=== PATIENT | female | born 1990 | race Caucasian/White ===

== ENCOUNTER 2016-11-03 17:48 | Emergency (ER) | payer OTHER ==
--- NOTE | 2016-11-03 19:51 | ED CLINICAL REPORT ---
Clinical Report - Physicians/Mid Levels [facility] [address] [place] [address] 11/03/2016 17:50 Patient: SRINIVASAN RAMIREZ Time Seen: 19:01; initial patient contact. Arrived- By private vehicle. Historian- patient. HISTORY OF PRESENT ILLNESS Chief Complaint: ALLERGIC REACTION. THROAT SWELLING and DYSPNEA. pt states she took her amoxicillin and flonase last night, and this morning feels like her throat is a little tight, has a history of asthma, and feels wheezy, not improving with her inhaler, no rash no tongue or facial swelling... This started today and is still present. The patient has had mild difficulty breathing . The patient has also had wheezing and mild trouble swallowing. A possible cause has been identified (amox or flonase). She has recently taken an antibiotic. No treatment prior to arrival. Similar symptoms previously: Recent medical care: The patient was seen recently at another facility in a clinic. REVIEW OF SYSTEMS The patient has had a cough. No headache, weakness, numbness, chest pain or palpitations. All systems otherwise negative, except as recorded above. PAST HISTORY See nurses notes. Prior allergic reaction. Hay fever. Problems: URI. Bronchitis. Pneumonia. LNMP - Last Normal Menstrual Period. Additional Surgeries: no known surgeries. Medications: Fluticasone Propionate Nasal. Amoxicillin Oral 1000 mg q12hrs. MonoNessa Oral. Levothyroxine Sodium Oral 175 mcg, daily. Albuterol Sulfate Inhalation. Allergies: No Known Drug Allergy. SOCIAL HISTORY Never smoker. No alcohol use or drug use. FAMILY HISTORY Negative. ADDITIONAL NOTES The nursing notes have been reviewed with agreement regarding the chief complaint, HPI, ROS, PMH and patient medications and allergies. PHYSICAL EXAM Vital Signs: 11/03/2016 19:17 BP: 117/80. HR: 98. RR: 18. O2 saturation: 100%. Pain level now: 0/10. 11/03/2016 18:05 BP: 132/92. HR: 96. RR: 18. O2 saturation: 99%. Temp: 98.8 F. Pain level now: 3/10. Have been reviewed. Appearance: Alert. Oriented X3. No acute distress. Anxious. Head and Neck: Normal external inspection. Eyes: Pupils equal, round and reactive to light. No conjunctival findings. ENT: Abnormal ear exam. Right Ear: there is TM dullness, a diffuse light reflex, bulging of the TM and mild TM erythema. Left Ear: there is TM dullness present, bulging of the TM and mild TM erythema. Hoarse voice. Nose normal. Pharynx normal. Neck: Neck supple. No lymphadenopathy or meningeal signs. CVS: Normal heart rate and rhythm. Heart sounds normal. Respiratory: No respiratory distress. Mildly decreased air movement bilaterally. Inspiratory wheezes in the right and left upper lung. No accessory muscle use, rales or rhonchi. Abdomen: Nontender. Skin: Skin warm and dry. Normal skin turgor. Skin: Normal skin color. No rash. No urticaria. Neuro: Oriented X 3. PROGRESS AND PROCEDURES Course of Care: 18:13 11/03/16. Patient identifiers checked. Call light placed in reach. Bed placed in lowest position. Patient ready for evaluation- chart flagged. --18:13 Juany Mendiola R.N. 18:20 11/03/2016 Site #1 started via IV in the right wrist with an 20g angiocath, with aseptic technique and good blood return; one attempt. Blood drawn: rainbow set. Labeled in the presence of the patient and sent to the lab. Saline lock flushed with 10 mL saline. --18:20 Juany Mendiola R.N. Care transferred and report received (SERGEY Harrington). --19:06 Caity Coronado R.N. 19:17 11/03/2016 Benadryl (DiphenhydrAMINE HCl) IVP 25 mg given over 1 minute(s) via site #1. Allergies verified, confirmed 5 rights and sedative warning given to the patient. IV patency established. IV site checked: no pain, redness, or swelling. IV flushed thoroughly pre- and post-medication administration. IVP given by RN. --19:17 Caity Coronado R.N. 19:21 11/03/16. Overall patient status is improved- she states feels better. ( Patient says she is feeling like she is breathing a little better. RT says she is tight in lungs so he will do Duoneb treatment). RESPIRATORY: No respiratory distress. SKIN: Skin is warm. Skin color within normal limits. --19:21 Caity Coronado R.N. 19:17 11/03/16. BP: 117/80. HR: 98. RR: 18. O2 saturation: 100% on room air. Pain level now: 0/10. --19:21 Caity Coronado R.N. 19:41 11/03/16. ( Patient says she is breathing much better now after treatment). --19:41 Caity Coronado R.N. Patient is stable. The patient's symptoms are now gone. Physical exam findings are improved. CLINICAL IMPRESSION Localized allergic reaction with bronchospasm secondary to PO penicillins. Acute bronchospasm Acute maxillary sinusitis. INSTRUCTIONS No strenuous activity. Rest. Do not work for three days until better. Do not smoke. No alcohol. (stop the amoxicillin, change to zithromax. follow up with your doctor. you might see a operations analyst or calibration tester if your asthma fails to improve). Warnings: Further evaluation is necessary. GENERAL WARNINGS: Return or contact your physician immediately if your condition worsens or changes unexpectedly, if not improving as expected, or if other problems arise. Your Current Medications: CONTINUE TAKING THE FOLLOWING MEDICATIONS: Albuterol Sulfate Inhalation. Amoxicillin Oral : 1000 mg q12hrs. Fluticasone Propionate Nasal. Levothyroxine Sodium Oral : 175 mcg daily. MonoNessa Oral. Prescription Medications: Zithromax Z-Alton 250 mg tablets: Take according to package instructions 2 orally today, followed by 1 orally every day for the next 4 days. Total course 5 days. No refills. Substitution is permissible. Zyrtec 10 mg: take 1 tablet orally every day as needed for allergies or congestion. Dispense thirty (30). No refill. Substitution is permissible. Follow-up: Follow up with a operations analyst if not better. Understanding of the discharge instructions verbalized by patient. (Electronically signed by Fernanda Johnson PA-C 11/04/2016 0:36)
--- NOTE | 2016-11-03 19:51 | ED CLINICAL REPORT ---
Clinical Report - Physicians/Mid Levels [facility] [address] [place] [address] 11/03/2016 17:50 Patient: SRINIVASAN RAMIREZ Time Seen: 19:01; initial patient contact. Arrived- By private vehicle. Historian- patient. HISTORY OF PRESENT ILLNESS Chief Complaint: ALLERGIC REACTION. THROAT SWELLING and DYSPNEA. pt states she took her amoxicillin and flonase last night, and this morning feels like her throat is a little tight, has a history of asthma, and feels wheezy, not improving with her inhaler, no rash no tongue or facial swelling... This started today and is still present. The patient has had mild difficulty breathing . The patient has also had wheezing and mild trouble swallowing. A possible cause has been identified (amox or flonase). She has recently taken an antibiotic. No treatment prior to arrival. Similar symptoms previously: Recent medical care: The patient was seen recently at another facility in a clinic. REVIEW OF SYSTEMS The patient has had a cough. No headache, weakness, numbness, chest pain or palpitations. All systems otherwise negative, except as recorded above. PAST HISTORY See nurses notes. Prior allergic reaction. Hay fever. Problems: URI. Bronchitis. Pneumonia. LNMP - Last Normal Menstrual Period. Additional Surgeries: no known surgeries. Medications: Fluticasone Propionate Nasal. Amoxicillin Oral 1000 mg q12hrs. MonoNessa Oral. Levothyroxine Sodium Oral 175 mcg, daily. Albuterol Sulfate Inhalation. Allergies: No Known Drug Allergy. SOCIAL HISTORY Never smoker. No alcohol use or drug use. FAMILY HISTORY Negative. ADDITIONAL NOTES The nursing notes have been reviewed with agreement regarding the chief complaint, HPI, ROS, PMH and patient medications and allergies. PHYSICAL EXAM Vital Signs: 11/03/2016 19:17 BP: 117/80. HR: 98. RR: 18. O2 saturation: 100%. Pain level now: 0/10. 11/03/2016 18:05 BP: 132/92. HR: 96. RR: 18. O2 saturation: 99%. Temp: 98.8 F. Pain level now: 3/10. Have been reviewed. Appearance: Alert. Oriented X3. No acute distress. Anxious. Head and Neck: Normal external inspection. Eyes: Pupils equal, round and reactive to light. No conjunctival findings. ENT: Abnormal ear exam. Right Ear: there is TM dullness, a diffuse light reflex, bulging of the TM and mild TM erythema. Left Ear: there is TM dullness present, bulging of the TM and mild TM erythema. Hoarse voice. Nose normal. Pharynx normal. Neck: Neck supple. No lymphadenopathy or meningeal signs. CVS: Normal heart rate and rhythm. Heart sounds normal. Respiratory: No respiratory distress. Mildly decreased air movement bilaterally. Inspiratory wheezes in the right and left upper lung. No accessory muscle use, rales or rhonchi. Abdomen: Nontender. Skin: Skin warm and dry. Normal skin turgor. Skin: Normal skin color. No rash. No urticaria. Neuro: Oriented X 3. PROGRESS AND PROCEDURES Course of Care: 18:13 11/03/16. Patient identifiers checked. Call light placed in reach. Bed placed in lowest position. Patient ready for evaluation- chart flagged. --18:13 Juany Mendiola R.N. 18:20 11/03/2016 Site #1 started via IV in the right wrist with an 20g angiocath, with aseptic technique and good blood return; one attempt. Blood drawn: rainbow set. Labeled in the presence of the patient and sent to the lab. Saline lock flushed with 10 mL saline. --18:20 Juany Mendiola R.N. Care transferred and report received (SERGEY Harrington). --19:06 Caity Coronado R.N. 19:17 11/03/2016 Benadryl (DiphenhydrAMINE HCl) IVP 25 mg given over 1 minute(s) via site #1. Allergies verified, confirmed 5 rights and sedative warning given to the patient. IV patency established. IV site checked: no pain, redness, or swelling. IV flushed thoroughly pre- and post-medication administration. IVP given by RN. --19:17 Caity Coronado R.N. 19:21 11/03/16. Overall patient status is improved- she states feels better. ( Patient says she is feeling like she is breathing a little better. RT says she is tight in lungs so he will do Duoneb treatment). RESPIRATORY: No respiratory distress. SKIN: Skin is warm. Skin color within normal limits. --19:21 Caity Coronado R.N. 19:17 11/03/16. BP: 117/80. HR: 98. RR: 18. O2 saturation: 100% on room air. Pain level now: 0/10. --19:21 Caity Coronado R.N. 19:41 11/03/16. ( Patient says she is breathing much better now after treatment). --19:41 Caity Coronado R.N. Patient is stable. The patient's symptoms are now gone. Physical exam findings are improved. CLINICAL IMPRESSION Localized allergic reaction with bronchospasm secondary to PO penicillins. Acute bronchospasm Acute maxillary sinusitis. INSTRUCTIONS No strenuous activity. Rest. Do not work for three days until better. Do not smoke. No alcohol. (stop the amoxicillin, change to zithromax. follow up with your doctor. you might see a methods examiner or braid pattern setter if your asthma fails to improve). Warnings: Further evaluation is necessary. GENERAL WARNINGS: Return or contact your physician immediately if your condition worsens or changes unexpectedly, if not improving as expected, or if other problems arise. Your Current Medications: CONTINUE TAKING THE FOLLOWING MEDICATIONS: Albuterol Sulfate Inhalation. Amoxicillin Oral : 1000 mg q12hrs. Fluticasone Propionate Nasal. Levothyroxine Sodium Oral : 175 mcg daily. MonoNessa Oral. Prescription Medications: Zithromax Z-Alton 250 mg tablets: Take according to package instructions 2 orally today, followed by 1 orally every day for the next 4 days. Total course 5 days. No refills. Substitution is permissible. Zyrtec 10 mg: take 1 tablet orally every day as needed for allergies or congestion. Dispense thirty (30). No refill. Substitution is permissible. Follow-up: Follow up with a methods examiner if not better. Understanding of the discharge instructions verbalized by patient. (Electronically signed by Fernanda Johnson PA-C 11/04/2016 0:36)
--- NOTE | 2016-11-03 19:52 | ED NURSING NOTES ---
Clinical Report - Nurses [facility] [address] [place] [address] 11/03/2016 17:50 Patient: SRINIVASAN RAMIREZ TRIAGE Triage time 18:06. Acuity: LEVEL 3. Chief Complaint: POSSIBLE ALLERGIC REACTION and DIFFICULTY BREATHING and FEELING FAINT . woke up and "couldn't breathe". Alert. --18:13 Juany Mendiola R.N. 18:05 11/03/16. BP: 132/92. HR: 96. RR: 18. O2 saturation: 99%. Temp: 98.8 F. Pain level now: 08/17. --18:13 Juany Mendiola R.N. Weight: 140.6 kg stated. Height/Length: 67 inches Per Patient. BMI: 48.6. --18:11 Juany Mendiola R.N. Medications Albuterol Sulfate Inhalation. --18:07 Juany Mendiola R.N. Levothyroxine Sodium Oral 175 mcg, daily. --18:07 Juany Mendiola R.N. MonoNessa Oral. --18:08 Juany Mendiola R.N. Amoxicillin Oral 1000 mg q12hrs. --18:08 Juany Mendiola R.N. Fluticasone Propionate Nasal. --18:09 Juany Mendiola R.N. Allergies No Known Drug Allergy. --18:09 Juany Mendiola R.N. History Arrived by private vehicle. Historian: patient. Accompanied by (yayo). Primary physician (none). ( Pt thinks she is reacting to the fluticasone and possibly amoxicillin). This started today. Onset. (5 AM). Treatment GUEST SERVICES REPRESENTATIVE: (Albuterol). PAST MEDICAL HX: Immunizations: up-to-date. SOCIAL HX: Never smoker. No alcohol use or drug use. --18:13 Juany Mendiola R.N. PROBLEMS: Sinusitis. Bronchitis. Pneumonia. --18:10 Juany Mendiola R.N. ADDITIONAL SURGERIES: no known surgeries. Interventions ID band on patient. To room. --18:13 Juany Mendiola R.N. PHYSICAL ASSESSMENT 18:11/03/16. GENERAL / NEURO / PSYCH: Appears anxious. --18:13 Juany Mendiola R.N. NURSING PROGRESS NOTES 18:11/03/16. Patient identifiers checked. Call light placed in reach. Bed placed in lowest position. Patient ready for evaluation- chart flagged. --18:13 Juany Mendiola R.N. 18:20 11/03/2016 Site #1 started via IV in the right wrist with an 20g angiocath, with aseptic technique and good blood return; one attempt. Blood drawn: rainbow set. Labeled in the presence of the patient and sent to the lab. Saline lock flushed with 10 mL saline. --18:20 Juany Mendiola R.N. Care transferred and report received (Juany, RN). --19:06 Caity Coronado R.N. 19:17 11/03/2016 Benadryl (DiphenhydrAMINE HCl) IVP 25 mg given over 1 minute(s) via site #1. Allergies verified, confirmed 5 rights and sedative warning given to the patient. IV patency established. IV site checked: no pain, redness, or swelling. IV flushed thoroughly pre- and post-medication administration. IVP given by RN. --19:17 Caity Coronado R.N. 19:21 11/03/16. Overall patient status is improved- she states feels better. ( Patient says she is feeling like she is breathing a little better. RT says she is tight in lungs so he will do Duoneb treatment). RESPIRATORY: No respiratory distress. SKIN: Skin is warm. Skin color within normal limits. --19:21 Caity Coronado R.N. 19:17 11/03/16. BP: 117/80. HR: 98. RR: 18. O2 saturation: 100% on room air. Pain level now: 0/10. --19:21 Caity Coronado R.N. 19:41 11/03/16. ( Patient says she is breathing much better now after treatment). --19:41 Caity Coronado R.N. DISPOSITION / DISCHARGE Condition at departure: stable. No learning barriers present. Discharge instructions provided and reviewed with the patient. Reviewed medication(s) side effects, precautions, dosing and course information. Prescription(s) given to the patient. Patient verbalized understanding. Written instructions provided in Mongolian. The patient was discharged by the physician. She was discharged home and accompanied by learning coordinator. She left the Emergency Department ambulatory and via private vehicle. Operator Weapon Locating Radar driving. --20:04 Sheriff Freire R.N. Locked/Released at 11/03/2016 20:05 by Sheriff Freire R.N.
--- NOTE | 2016-11-03 19:52 | ED ORDER SUMMARY ---
..... Patient: SRINIVASAN RAMIREZ OrderSheet [facility] VisitID: [id number] [address] [place] [address] 26y, F Registration Date/Time: 11/03/2016 ORDER SHEET Weight: 140.6 kg (stated) Allergies: No Known Drug Allergy GENERAL ORDERS: RT Evaluation Stat (19:08 11/03/2016 Vinod SCHAEFFER) (Ack 19:10 IJurca ER Tech1) (19:22 JSanders R.N.) MEDICATION ORDERS: IV FLUIDS: IV Saline Lock (18:20 11/03/2016 LSullivan R.N. per protocol) (18:20 LSullivan R.N.) Benadryl IV 25 mg (NOW) (19:08 11/03/2016 Vinod SCHAEFFER) (Ack 19:12 JSanders R.N.) (19:17 JSanders R.N.) ORDER SHEET NOTES: [Electronically signed by Sheriff Rai Freire (20:05 11/03/2016)] [Electronically signed by Fernanda Johnson PA-C (00:36 11/04/2016)] [Electronically locked/signed by Sheriff Rai Freire (20:05 11/03/2016)]
--- NOTE | 2016-11-03 19:52 | ED ORDER SUMMARY ---
..... Patient: SRINIVASAN RAMIREZ OrderSheet [facility] VisitID: [id number] [address] [place] [address] 26y, F Registration Date/Time: 11/03/2016 ORDER SHEET Weight: 140.6 kg (stated) Allergies: No Known Drug Allergy GENERAL ORDERS: RT Evaluation Stat (19:08 11/03/2016 Vinod SCHAEFFER) (Ack 19:10 IJurca ER Tech1) (19:22 JSanders R.N.) MEDICATION ORDERS: IV FLUIDS: IV Saline Lock (18:20 11/03/2016 LSullivan R.N. per protocol) (18:20 LSullivan R.N.) Benadryl IV 25 mg (NOW) (19:08 11/03/2016 Vinod SCHAEFFER) (Ack 19:12 JSanders R.N.) (19:17 JSanders R.N.) ORDER SHEET NOTES: [Electronically signed by Sheriff Rai Freire (20:05 11/03/2016)] [Electronically signed by Fernanda Johnson PA-C (00:36 11/04/2016)] [Electronically locked/signed by Sheriff Rai Freire (20:05 11/03/2016)]
--- NOTE | 2016-11-03 19:52 | ED NURSING NOTES ---
Clinical Report - Nurses [facility] [address] [place] [address] 11/03/2016 17:50 Patient: SRINIVASAN RAMIREZ TRIAGE Triage time 18:06. Acuity: LEVEL 3. Chief Complaint: POSSIBLE ALLERGIC REACTION and DIFFICULTY BREATHING and FEELING FAINT . woke up and "couldn't breathe". Alert. --18:13 Juany Mendiola R.N. 18:05 11/03/16. BP: 132/92. HR: 96. RR: 18. O2 saturation: 99%. Temp: 98.8 F. Pain level now: 08/17. --18:13 Juany Mendiola R.N. Weight: 140.6 kg stated. Height/Length: 67 inches Per Patient. BMI: 48.6. --18:11 Juany Mendiola R.N. Medications Albuterol Sulfate Inhalation. --18:07 Juany Mendiola R.N. Levothyroxine Sodium Oral 175 mcg, daily. --18:07 Juany Mendiola R.N. MonoNessa Oral. --18:08 Juany Mendiola R.N. Amoxicillin Oral 1000 mg q12hrs. --18:08 Juany Mendiola R.N. Fluticasone Propionate Nasal. --18:09 Juany Mendiola R.N. Allergies No Known Drug Allergy. --18:09 Juany Mendiola R.N. History Arrived by private vehicle. Historian: patient. Accompanied by (yayo). Primary physician (none). ( Pt thinks she is reacting to the fluticasone and possibly amoxicillin). This started today. Onset. (5 AM). Treatment SALES PERFORMANCE MANAGER: (Albuterol). PAST MEDICAL HX: Immunizations: up-to-date. SOCIAL HX: Never smoker. No alcohol use or drug use. --18:13 Juany Mendiola R.N. PROBLEMS: Sinusitis. Bronchitis. Pneumonia. --18:10 Juany Mendiola R.N. ADDITIONAL SURGERIES: no known surgeries. Interventions ID band on patient. To room. --18:13 Juany Mendiola R.N. PHYSICAL ASSESSMENT 18:11/03/16. GENERAL / NEURO / PSYCH: Appears anxious. --18:13 Juany Mendiloa R.N. NURSING PROGRESS NOTES 18:11/03/16. Patient identifiers checked. Call light placed in reach. Bed placed in lowest position. Patient ready for evaluation- chart flagged. --18:13 Juany Mendiola R.N. 18:20 11/03/2016 Site #1 started via IV in the right wrist with an 20g angiocath, with aseptic technique and good blood return; one attempt. Blood drawn: rainbow set. Labeled in the presence of the patient and sent to the lab. Saline lock flushed with 10 mL saline. --18:20 Juany Mendiola R.N. Care transferred and report received (Juany, RN). --19:06 Caity Coronado R.N. 19:17 11/03/2016 Benadryl (DiphenhydrAMINE HCl) IVP 25 mg given over 1 minute(s) via site #1. Allergies verified, confirmed 5 rights and sedative warning given to the patient. IV patency established. IV site checked: no pain, redness, or swelling. IV flushed thoroughly pre- and post-medication administration. IVP given by RN. --19:17 Caity Coronado R.N. 19:21 11/03/16. Overall patient status is improved- she states feels better. ( Patient says she is feeling like she is breathing a little better. RT says she is tight in lungs so he will do Duoneb treatment). RESPIRATORY: No respiratory distress. SKIN: Skin is warm. Skin color within normal limits. --19:21 Caity Coronado R.N. 19:17 11/03/16. BP: 117/80. HR: 98. RR: 18. O2 saturation: 100% on room air. Pain level now: 0/10. --19:21 Caity Coronado R.N. 19:41 11/03/16. ( Patient says she is breathing much better now after treatment). --19:41 Caity Coronado R.N. DISPOSITION / DISCHARGE Condition at departure: stable. No learning barriers present. Discharge instructions provided and reviewed with the patient. Reviewed medication(s) side effects, precautions, dosing and course information. Prescription(s) given to the patient. Patient verbalized understanding. Written instructions provided in Tajik. The patient was discharged by the physician. She was discharged home and accompanied by sample cutter. She left the Emergency Department ambulatory and via private vehicle. Car Supplier driving. --20:04 Sheriff Freire R.N. Locked/Released at 11/03/2016 20:05 by Sheriff Freire R.N.
--- NOTE | 2016-11-04 00:36 | ED MAR SUMMARY ---
..... Medication Administration Record [facility] [address] [place] [address] Patient: SRINIVASAN RAMIREZ Visit ID: [id number] 26y, F Weight: 140.6 kg Height/Length: 67 in BMI: 48.6 ALLERGIES: No Known Drug Allergy Given 19:17 11/03/2016 Caity Coronado R.N. Medication Administered: BENADRYL [IVP] (DIPHENHYDRAMINE HCL), Dose: 25 mg IVP over 1 minute(s), Site: #1 right wrist. Medication Ordered: Benadryl IV 25 mg (NOW).
--- NOTE | 2016-11-04 00:36 | ED MED RECONCILIATION SUMMARY ---
Patient: SRINIVASAN RAMIREZ Medication Reconciliation Report [facility] VisitID: [id number] [address] [place] [address] 26y, F Registration Date/Time: 11/03/2016 Weight: 140.6 kg Height/Length: 67 in. BMI: 48.6 ALLERGIES: No Known Drug Allergy The patient's Home Medications are listed below: CONTINUE TAKING THE FOLLOWING MEDICATIONS: Albuterol Sulfate Inhalation Amoxicillin Oral 1000 mg q12hrs Fluticasone Propionate Nasal Levothyroxine Sodium Oral 175 mcg, daily MonoNessa Oral The source(s) of the original Home Medication information: Not obtained. The following Medications were given to the patient in the Emergency Department: Benadryl [IVP] IVP 25 mg, administered: 11/03/2016 7:17:00 PM The following Medications were prescribed to the patient: Zithromax Z-Alton 250 mg tablets: Take according to package instructions 2 orally today, followed by 1 orally every day for the next 4 days. Total course 5 days. No refills. Substitution is permissible. -- Fernanda Johnson PA-C Zyrtec 10 mg: take 1 tablet orally every day as needed for allergies or congestion. Dispense thirty (30). No refill. Substitution is permissible. -- Fernanda Johnson PA-C
--- NOTE | 2016-11-04 00:36 | ED MED RECONCILIATION SUMMARY ---
Patient: SRINIVASAN RAMIREZ Medication Reconciliation Report [facility] VisitID: [id number] [address] [place] [address] 26y, F Registration Date/Time: 11/03/2016 Weight: 140.6 kg Height/Length: 67 in. BMI: 48.6 ALLERGIES: No Known Drug Allergy The patient's Home Medications are listed below: CONTINUE TAKING THE FOLLOWING MEDICATIONS: Albuterol Sulfate Inhalation Amoxicillin Oral 1000 mg q12hrs Fluticasone Propionate Nasal Levothyroxine Sodium Oral 175 mcg, daily MonoNessa Oral The source(s) of the original Home Medication information: Not obtained. The following Medications were given to the patient in the Emergency Department: Benadryl [IVP] IVP 25 mg, administered: 11/03/2016 7:17:00 PM The following Medications were prescribed to the patient: Zithromax Z-Alton 250 mg tablets: Take according to package instructions 2 orally today, followed by 1 orally every day for the next 4 days. Total course 5 days. No refills. Substitution is permissible. -- Fernanda Johnson PA-C Zyrtec 10 mg: take 1 tablet orally every day as needed for allergies or congestion. Dispense thirty (30). No refill. Substitution is permissible. -- Fernanda Johnson PA-C
--- NOTE | 2016-11-04 00:36 | ED MAR SUMMARY ---
..... Medication Administration Record [facility] [address] [place] [address] Patient: SRINIVASAN RAMIREZ Visit ID: [id number] 26y, F Weight: 140.6 kg Height/Length: 67 in BMI: 48.6 ALLERGIES: No Known Drug Allergy Given 19:17 11/03/2016 Caity Coronado R.N. Medication Administered: BENADRYL [IVP] (DIPHENHYDRAMINE HCL), Dose: 25 mg IVP over 1 minute(s), Site: #1 right wrist. Medication Ordered: Benadryl IV 25 mg (NOW).
--- NOTE | 2016-11-04 00:36 | ED DISCHARGE INSTRUCTIONS ---
Patient: SRINIVASAN RAMIREZ General Instructions [facility] VisitID: [id number] [place] [address] 26y, F Registration Date/Time: 11/03/2016 Localized allergic reaction with bronchospasm secondary to PO penicillins. Acute bronchospasm Acute maxillary sinusitis. INSTRUCTIONS No strenuous activity. Rest. Do not work for three days until better. Do not smoke. No alcohol. (stop the amoxicillin, change to zithromax. follow up with your doctor. you might see a joiner or drop board worker if your asthma fails to improve). Warnings: Further evaluation is necessary. GENERAL WARNINGS: Return or contact your physician immediately if your condition worsens or changes unexpectedly, if not improving as expected, or if other problems arise. Your Current Medications: CONTINUE TAKING THE FOLLOWING MEDICATIONS: Albuterol Sulfate Inhalation. Amoxicillin Oral : 1000 mg q12hrs. Fluticasone Propionate Nasal. Levothyroxine Sodium Oral : 175 mcg daily. MonoNessa Oral. Prescription Medications: Zithromax Z-Alton 250 mg tablets: Take according to package instructions 2 orally today, followed by 1 orally every day for the next 4 days. Total course 5 days. No refills. Substitution is permissible. Zyrtec 10 mg: take 1 tablet orally every day as needed for allergies or congestion. Dispense thirty (30). No refill. Substitution is permissible. Follow-up: Follow up with a joiner if not better. Understanding of the discharge instructions verbalized by patient. ADDITIONAL INFORMATION Allergic Reaction, Other [Local] You are having an allergic reaction. This is due to exposure to something you have become sensitive to. This may be a household product, medicine, chemical, soap, cream, cosmetics or jewelry. A sting from an insect (that you were not aware of) can also cause this reaction. Sometimes it is difficult to know exactly what caused this reaction. There may be redness, itching, and swelling. The rash will fade over the next few days. Home Care: If itching is a problem, avoid anything that heats up your skin (hot showers/baths, direct sunlight) since heat will make itching worse. An ice pack (ice cubes in a plastic bag, wrapped in a towel) will reduce local areas of redness and itching. Lanacaine cream or Solarcaine spray (or other product containing "benzocaine") will reduce the itching. Oral Benadryl (diphenhydramine) is an antihistamine available at drug and grocery stores. Unless a prescription antihistamine was given, Benadryl may be used to reduce itching if large areas of the skin are involved. Use lower doses during the daytime and higher doses at bedtime since the drug may make you sleepy. [NOTE: Do not use Benadryl if you have glaucoma or if you are a man with trouble urinating due to an enlarged prostate.] Claritin (loratadine) is an antihistamine that causes less drowsiness and is a good alternative for daytime use. Follow Up with your doctor or this facility in the next two days if your symptoms do not continue to improve. Get Prompt Medical Attention if any of the following occur: Spreading areas of itching, redness or swelling New or worse swelling in the face, eyelids, lips, mouth, throat or tongue Trouble swallowing or breathing Dizziness, weakness or fainting Signs of infection: Spreading redness Increased pain or swelling Fever of 100.4F (38C) or higher, or as directed by your healthcare provider Colored fluid draining from the wound Bronchospasm (Adult) Bronchospasm occurs when the airways (bronchial tubes) go into spasm and contract. This makes it hard to breathe and causes wheezing (a high-pitched whistling sound). Bronchospasm can also cause frequent coughing without the wheezing sound. Bronchospasm is due to irritation, inflammation or allergic reaction of the airways. People with asthma get bronchospasm. However, not everyone with bronchospasm has asthma. Being exposed to harmful fumes, a recent case of bronchitis, or a flare-up of chronic emphysema (COPD) may cause the airways to spasm. An episode of bronchospasm may last 7-14 days. Medicine may be prescribed to relax the airways and prevent wheezing. Antibiotics will be prescribed only if your doctor thinks there is a bacterial infection. Antibiotics do not help a viral infection. Home Care: Drink lots of water or other fluids (at least 10 glasses a day) during an attack. This will loosen lung secretions and make it easier to breathe. If you have heart or kidney disease, check with your doctor before you drink extra amounts of fluids. Take prescribed medicine exactly at the times advised. If you have a hand-held inhaler or aerosol breathing medicine, do not use it more than once every four hours, unless told to do so. If prescribed an antibiotic or prednisone, take all of the medicine even if you are feeling better after a few days. Do not smoke. Avoid being exposed to the smoke of others. If you were given an inhaler, use it exactly as directed. If you need to use it more often than prescribed, your condition may be getting worse. Contact your doctor or this facility. Follow Up With Your Doctor, Or As Directed. [ NOTE: If you are age 65 or older, or if you have chronic asthma or COPD, we recommend a PNEUMOCOCCAL VACCINATION every five years and a yearly INFLUENZA VACCINATION (FLU-SHOT) every . Ask your doctor about this.] Get Prompt Medical Attention If Any Of The Following Occur: Increased wheezing or shortness of breath Need to use your inhalers more often than usual without relief Fever of 100.4F (38C) or higher, or as directed by your healthcare provider Coughing up lots of dark-colored or bloody sputum (mucus) Chest pain with each breath You do not start to improve within 24 hours You have been given the following additional information: Allergic Reaction, Other (Local) Bronchospasm (Adult) No strenuous activity. Rest. Do not work for three days until better. (Electronically signed by Fernanda Johnson PA-C 11/04/2016 0:36)
== END 2016-11-03 20:00 | disposition home or self-care (01) ==
LOC: ED SRH 17:48
DX: R06.00 Dyspnea, unspecified (principal); J98.01 Acute bronchospasm; R22.1 Localized swelling, mass and lump, neck; T36.0X5A Adverse effect of penicillins, initial encounter; T49.1X5A Adverse effect of antipruritics, initial encounter; J01.00 Acute maxillary sinusitis, unspecified; Z79.899 Other long term (current) drug therapy; Z79.2 Long term (current) use of antibiotics